=== PATIENT | male | born 1985 | race Caucasian/White ===

== ENCOUNTER 2018-01-24 12:36 | Emergency (ER) | payer OTHER ==
[~2018-01-24] VITALS: Ht 188 cm; Wt 77.2 kg
[2018-01-24 12:43] VITALS: BP 132/84
[2018-01-24] MEDS ORDERED: DIPHENHYDRAMINE 50 MG CAPSULE ONE (13:08)
[2018-01-24] MEDS ORDERED: FAMOTIDINE 20 MG TABLET ONE (13:08)
[2018-01-24] MEDS ORDERED: DIPHENHYDRAMINE 25 MG CAPSULE PO ONE (13:30)
[2018-01-24] MEDS ORDERED: FAMOTIDINE 20 MG TABLET PO ONE (13:30)
== END 2018-01-24 13:56 | disposition home or self-care (01) ==
LOC: ED 13:45
DX: T63.441A Toxic effect of venom of bees, accidental (unintentional), initial encounter (principal)
CPT/HCPCS: 99284; J7512; Q0163